=== PATIENT | female | born 1955 | race Two or more races ===

== ENCOUNTER 2023-04-23 15:06 | Outpatient (CLI) | payer OTHER, BC | END 2023-04-23 15:14 | disposition home or self-care (01) | LOC: RAD 15:06 | DX: M19.019 Primary osteoarthritis, unspecified shoulder (principal) ==

== ENCOUNTER 2024-07-01 11:50 | Outpatient (CLI) | payer OTHER, BC | END 2024-07-01 11:57 | disposition home or self-care (01) | LOC: RAD 11:50 | DX: S62.300A Unspecified fracture of second metacarpal bone, right hand, initial encounter for closed fracture (principal); S62.301A Unspecified fracture of second metacarpal bone, left hand, initial encounter for closed fracture; X58.XXXA Exposure to other specified factors, initial encounter; Y93.9 Activity, unspecified; Y92.9 Unspecified place or not applicable; Y99.9 Unspecified external cause status ==